=== PATIENT | male | born 1990 | race Caucasian/White ===

== ENCOUNTER 2023-01-03 15:17 | Outpatient (CLI) | payer BC | END 2023-01-03 15:18 | disposition critical access hospital (66) | LOC: EMS 15:17 | DX: S90.562A Insect bite (nonvenomous), left ankle, initial encounter (principal); R06.00 Dyspnea, unspecified; L50.0 Allergic urticaria; W57.XXXA Bitten or stung by nonvenomous insect and other nonvenomous arthropods, initial encounter | CPT/HCPCS: A0425; A0429 ==

== ENCOUNTER 2023-01-03 15:55 | Emergency (ER) | payer BC ==
[2023-01-03] MEDS ORDERED: DEXAMETHASONE 10 MG/ML VIAL IVP STA (16:04)
[2023-01-03] MEDS ORDERED: SODIUM CHLORIDE 0.9% 1,000 ML IV STA (16:04)
--- NOTE | 2023-01-03 16:08 | ED Physician Documentation ---
History of Present Illness - Stated complaint Stated Complaint: ALLERGIC REACTION - History obtained from History obtained from: Patient - Additonal information Additional information: Patient is a 32-year-old male presenting for evaluation of an allergic reaction. 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 Shortly thereafter he reports feeling hives, itchiness, warmth, tightness in his chest and throat. EMS was called and patient was administered IM epinephrine along with Benadryl. Patient denies prior history of similar symptoms. States he is starting to feel better. Review of Systems Constitutional: denies: Fever Cardiac: denies: Chest pain / pressure Respiratory: denies: Dyspnea GI: denies: Abdominal Pain Skin: reports: Rash PD PAST MEDICAL HISTORY - Present Medications Home Medications: Ambulatory Orders Medication Instructions Recorded Confirmed EPINEPHrine [Epinephrine] 0.3 mg IJ ONCE PRN #2 each 01/03/23 diphenhydrAMINE [Benadryl] 25 mg PO Q6HR PRN #20 cap 01/03/23 - Allergies Allergies/Adverse Reactions: Allergies Allergy/AdvReac Type Severity Reaction Status Date / Time No Known Drug Allergies Allergy Verified 01/03/23 16:07 PD ED PE NORMAL - General General: Alert and oriented X 3, No acute distress, Well developed/nourished - HEENT HEENT: Atraumatic, Moist mucous membranes, Pharynx benign (No oral swelling, normal speech) - Neck Neck: Supple, no meningeal sign - Cardiac Cardiac: RRR, No murmur - Respiratory Respiratory: No respiratory distress, Clear bilaterally - Derm Derm: Other - Neuro Neuro: Normal speech Results - Vitals Vitals: Vital Signs - 24 hr 01/03/23 01/03/23 01/03/23 16:03 16:46 17:42 Temperature 36 C L Heart Rate 80 75 77 Respiratory 15 13 25 H Rate Blood Pressure 189/122 H 175/82 H 172/102 H O2 Saturation 99 100 99 Oxygen O2 Source Room air PD Medical Decision Making - ED course Complexity details: re-evaluated patient, d/w patient ED course: Pt with throat tightening and hives after being stung by insect on ankle. Given IM epi and benadryl by EMS. Improved on arrival here with no signs of airway compromise or continued anaphylaxis. Pt given decadron and IV fluids and monitored for several hours with resolution of all symptoms other than small hives near ankle. No signs of rebound symptoms. Pt counseled on need to carry IM epi as well as concerning symptoms to return for. Departure - Departure Disposition: 01 Home, Self Care Clinical Impression: Anaphylactic reaction Condition: Stable Instructions: ED Anaphylaxis General Prescriptions: diphenhydrAMINE [Benadryl] 25 mg PO Q6HR PRN #20 cap PRN Reason: Itching EPINEPHrine [Epinephrine] 0.3 mg IJ ONCE PRN #2 each PRN Reason: Allergy Symptoms Comments: I believe today your symptoms were from an anaphylactic reaction. You were given a dose of epinephrine by EMS. We have given you a long-acting steroid called Decadron and you have also received Benadryl to help with the itching. Fortunately her symptoms are improving. I have sent prescriptions for an EpiPen as well as Benadryl to [facility] in [place]. Please make sure to carry the EpiPen with you at all times. I would also recommend close follow-up with your primary care provider. If at anytime you feel any worsening symptoms such as throat tightness, swelling around your face, trouble breathing or any concerns please Use your EpiPen and dial 911. Forms: Activity restrictions Discharge Date/Time: 01/03/23 17:46
[2023-01-03 17:51] VITALS: BP 172/102; O2SAT 99
== END 2023-01-03 17:46 | disposition home or self-care (01) ==
LOC: ED 15:55
DX: S90.562A Insect bite (nonvenomous), left ankle, initial encounter (principal); W57.XXXA Bitten or stung by nonvenomous insect and other nonvenomous arthropods, initial encounter
CPT/HCPCS: 96374; 99283

== ENCOUNTER 2023-11-18 14:30 | Outpatient (CLI) | payer BC, OTHER ==
[2023-11-18 18:58] LABS: BASOPHILS # (AUTO) 0.1 10^3/uL (0.0-0.1); BASOPHILS % (AUTO) 0.9 %; EOSINOPHILS # (AUTO) 0.3 10^3/uL (0.0-0.7); EOSINOPHILS % (AUTO) 4.6 %; HCT - HEMATOCRIT 48.5 % (42.0-52.0); HGB - HEMOGLOBIN 17.1 g/dL (14.0-18.0); LYMPHOCYTES # (AUTO) 2.6 10^3/uL (1.5-3.5); LYMPHOCYTES % (AUTO) 39.4 %; MEAN CORPUSCULAR HEMOGLOBIN 31.4 pg (27.0-31.0); MEAN CORPUSCULAR HGB CONC 35.3 g/dL (32.0-36.0); MEAN PLATELET VOLUME 10.4 fL (7.4-11.4); MONOCYTES # (AUTO) 0.4 10^3/uL (0.0-1.0); MONOCYTES % (AUTO) 6.4 %; NEUTROPHILS # (AUTO) 3.2 10^3/uL (1.5-6.6); NEUTROPHILS % (AUTO) 48.4 %; PLT - PLATELET COUNT 210 10^3/uL (130-450); RED BLOOD COUNT 5.45 10^6/uL (4.70-6.10); RED CELL DISTRIBUTION WIDTH 12.1 % (12.0-15.0); WHITE BLOOD COUNT 6.7 x10^3/uL (4.8-10.8)
[2023-11-18 19:13] LABS: ALBUMIN 4.4 g/dL (3.2-5.5); ALBUMIN/GLOBULIN RATIO 1.8 (1.0-2.2); BILIRUBIN,TOTAL 0.4 mg/dL (0.2-1.0); CALCIUM 9.4 mg/dL (8.5-10.3); POTASSIUM 3.9 mmol/L (3.5-4.5); TOTAL PROTEIN 6.8 g/dL (6.4-8.9)
== END 2023-11-18 14:45 | disposition home or self-care (01) ==
LOC: LAB.N 14:30
PROVIDERS: ATTEND Physician Assistant Medical
DX: I10 Essential (primary) hypertension (principal)
CPT/HCPCS: 36415; 80053; 85025